=== PATIENT | female | born 2000 | race Caucasian/White ===

== ENCOUNTER 2019-05-16 10:15 | Emergency (ER) | payer MEDICAID ==
[~2019-05-16] VITALS: Ht 160 cm; Wt 70.3 kg
[2019-05-16 10:24] VITALS: BP 104/69
== END 2019-05-16 10:37 | disposition still patient (30) ==
LOC: ER 10:15 → EDBD 10:15 → ER 10:37
DX: O26.892 Other specified pregnancy related conditions, second trimester (principal); Z3A.22 22 weeks gestation of pregnancy